=== PATIENT | male | born 1945 | race Two or more races ===

== ENCOUNTER → 2020-03-14 07:44 | Outpatient (CLI) | payer OTHER | END | disposition home or self-care (01) | LOC: TOM 07:44 | DX: C61 Malignant neoplasm of prostate (principal) | CPT/HCPCS: 74177; Q9965 ==

== ENCOUNTER 2020-08-15 05:41 | Emergency (ER) | payer OTHER ==
[~2020-08-15] VITALS: Ht 157.5 cm; Wt 76.2 kg
== END 2020-08-15 10:54 | disposition home or self-care (01) ==
LOC: ER 05:41
DX: R10.32 Left lower quadrant pain (principal)

== ENCOUNTER 2022-07-27 13:44 | Outpatient (CLI) | payer OTHER | END 2022-07-27 13:45 | disposition home or self-care (01) | LOC: RAD 13:44 | PROVIDERS: ATTEND Obstetrics & Gynecology Obstetrics | DX: M99.05 Segmental and somatic dysfunction of pelvic region (principal); M99.04 Segmental and somatic dysfunction of sacral region; M99.03 Segmental and somatic dysfunction of lumbar region ==

== ENCOUNTER 2023-01-15 07:08 | Outpatient (CLI) | payer OTHER | END 2023-01-15 07:12 | disposition home or self-care (01) | LOC: RAD 07:08 | DX: M99.01 Segmental and somatic dysfunction of cervical region (principal); M99.02 Segmental and somatic dysfunction of thoracic region; M99.03 Segmental and somatic dysfunction of lumbar region; M99.04 Segmental and somatic dysfunction of sacral region; M99.05 Segmental and somatic dysfunction of pelvic region ==

== ENCOUNTER 2023-03-05 10:45 | Outpatient (CLI) | payer OTHER | END 2023-03-05 10:56 | disposition home or self-care (01) | LOC: TOM 10:45 | PROVIDERS: ATTEND Family Medicine | DX: M54.59 Other low back pain (principal); M54.16 Radiculopathy, lumbar region ==

== ENCOUNTER 2023-03-23 17:14 | Emergency (ER) | payer OTHER ==
[~2023-03-23] VITALS: Ht 160 cm; Wt 73.5 kg
== END 2023-03-23 20:48 | disposition home or self-care (01) ==
LOC: ER 17:14
DX: S60.131A Contusion of right middle finger with damage to nail, initial encounter (principal); X58.XXXA Exposure to other specified factors, initial encounter; Y93.89 Activity, other specified; Y92.89 Other specified places as the place of occurrence of the external cause; Y99.9 Unspecified external cause status